=== PATIENT | female | born 1995 | race Caucasian/White ===

== ENCOUNTER 2019-07-07 04:43 | Emergency (ER) | payer MEDICAID ==
[~2019-07-07] VITALS: Ht 165.1 cm; Wt 57.2 kg
[2019-07-07 04:46] VITALS: Ht 165.1 cm; Wt 57.2 kg
[2019-07-07 05:23] LABS: BASOPHIL % 0.2 % (0-2); PLATELET COUNT 352 x10^3mcL (130-400)
[2019-07-07 05:33] LABS: RED CELL DISTRIBUTION WIDTH 26.1 % (11.5-14.5)
[2019-07-07 05:36] LABS: acanthocyte (spur cell) 1+; ovalocyte/elliptocyte 1+; rbc morphology (normal/abnorm) ABNORMAL (NORMAL)
[2019-07-07 05:37] LABS: CALCIUM 8.1 mg/dL (8.5-10.1); CARBON DIOXIDE 25.9 mmol/L (21-32); CHLORIDE SERUM 105 mmol/L (98-107); CREATININE SERUM 0.7 mg/dL (0.6-1.0); GFR1 > 60 mL/min; GLUCOSE SERUM 116 mg/dL (74-106); POTASSIUM SERUM 3.6 mmol/L (3.5-5.1); SODIUM SERUM 142 mmol/L (136-145)
[2019-07-07 05:38] LABS: AMPHETAMINE QUAL UR NONE DETECTED (See below)
[2019-07-07 05:42] LABS: ALBUMIN 4.1 g/dL (3.4-5.0); ALKALINE PHOSPHATASE 65 U/L (46-116); ALT/SGPT 15 U/L (14-59); AST/SGOT 10 U/L (15-37); BILIRUBIN TOTAL 0.41 mg/dL (0.20-1.00); TOTAL PROTEIN, SERUM 7.4 g/dL (6.4-8.2)
[2019-07-07 06:48] VITALS: BP 116/76
== END 2019-07-07 06:48 | disposition home or self-care (01) ==
LOC: ED 04:43
PROVIDERS: Emergency Medicine
DX: R07.89 Other chest pain (principal)
CPT/HCPCS: J1885; J2060; J7030; Q0092